=== PATIENT | male | born 1995 | race Two or more races ===

== ENCOUNTER 2021-06-08 08:30 | Outpatient (CLI) | payer OTHER | END 2021-06-08 08:37 | disposition home or self-care (01) | LOC: SONOGRAMA 08:30 | PROVIDERS: ATTEND Internal Medicine | DX: Q87.89 Other specified congenital malformation syndromes, not elsewhere classified (principal) ==

== ENCOUNTER 2021-07-27 11:21 | Outpatient (CLI) | payer OTHER | END 2021-07-27 11:32 | disposition home or self-care (01) | LOC: SONOGRAMA 11:21 | DX: N18.1 Chronic kidney disease, stage 1 (principal) ==